=== PATIENT | female | born 1960 | race Asian ===

== ENCOUNTER 2016-08-01 07:53 | Outpatient (CLI) | payer OTHER ==
[~2016-08-01 07:53] MED LIST: ACET-689 PO; AMLO5TAB PO; B COMPLE2 PO; CHLORTHALID25 MG PO; CLARITIN10 MG PO; CYCL10TA35 PO; DICL1GEL2 TOP; FLUTICASONE50 MCG; FOLI1TAB26 PO; GABA300C2 PO; HYDR200T3 PO; KETO2CRE EX; LANTUS100 MG/ML SC; METHYLPR SS125 MG IJ; METO50TA63 PO; MIRALAX3350 N1 PO; RENVELA800 MG PO; SENSIPAR30 MG PO; SIMV10TA PO; WARFARIN4 MG PO; WARFARIN6 MG PO; ZESTRIL40 MG PO; [UNRECOGNIZED DRUG - OTHER] OR
[2016-08-01 08:58] LABS: PLATELET COUNT 172 K/uL (152-353)
[2016-08-01 09:03] LABS: POTASSIUM 4.3 mmol/L (3.6-5.2)
== END 2016-08-01 19:10 | disposition home or self-care (01) ==
LOC: LABW 07:53
PROVIDERS: Family Medicine
DX: Z94.0 Kidney transplant status (principal); Z79.899 Other long term (current) drug therapy; Z51.81 Encounter for therapeutic drug level monitoring; M54.2 Cervicalgia; M54.9 Dorsalgia, unspecified
CPT/HCPCS: 36415; 80053; 80197; 81000; 83735; 85027; 87799

== ENCOUNTER 2016-08-30 07:46 | Outpatient (CLI) | payer OTHER ==
[2016-08-30 08:09] LABS: PLATELET COUNT 167 K/uL (152-353)
[2016-08-30 08:14] LABS: POTASSIUM 4.7 mmol/L (3.6-5.2)
== END 2016-08-30 19:26 | disposition home or self-care (01) ==
LOC: LABW 07:46
PROVIDERS: Internal Medicine Nephrology
DX: Z94.0 Kidney transplant status (principal); Z79.899 Other long term (current) drug therapy; Z51.81 Encounter for therapeutic drug level monitoring
CPT/HCPCS: 36415; 80053; 80197; 81000; 83735; 85027; 87799

== ENCOUNTER 2016-09-03 10:04 | Inpatient (IN) | payer OTHER ==
[~2016-09-03] VITALS: Ht 160 cm; Wt 101.0 kg
[2016-09-03] VITALS (16 sets, daily range): BP systolic 88–185; BP diastolic 49–91; TEMP 99.3–102.9; Ht 160 cm; Wt 101.0 kg
--- NOTE | 2016-09-03 10:32 | NUR ---
Pt. ADMITTED TO ROOM [address] TINAJERO. C/O RUN A TEMP AND ACHING ALL OVER SINCE FRIDAY. TEMP 102.9
--- NOTE | 2016-09-03 12:06 | NUR ---
TYLENOL 650MG GIVEN FOR ELEVATED TEMP. RECEIVED ORDER TO TRANSFER Pt. TO ICU. Pt. HAS CHILLS WITH FEVER.
[2016-09-03 13:45] LABS: PLATELET COUNT 147 K/uL (152-353)
--- NOTE | 2016-09-03 14:04 | NUR ---
PT TO ICU VIA W/C FROM MED/SURG. ASSISTED TO BSC,FEW DROPS MED. YELLOW URINE,PERICARE PER SELF & ASSISTED TO BED. PT DOESN'T 'FEEL GOOD',BEEN SICK SINCE SAT, FEVER & CHILLS. DENIES PAIN AT THIS TIME. IV NS INFUSING @30 CC/HR INTO LFA 20G IV.
--- NOTE | 2016-09-03 14:04 | NUR ---
REPORT GIVEN TO ANASTACIO CHAU RN. Pt. TRANSFERRED TO ICU VIA W/C. TEMP 101.5
[2016-09-03 14:05] LABS: POTASSIUM 4.9 mmol/L (3.6-5.2); SODIUM 131 mmol/L (136-145)
--- NOTE | 2016-09-03 14:20 | NUR ---
LAB IN TO DRAW 2ND BC.
[2016-09-03] MEDS ORDERED: PULMICORT180 MCG IN (16:42)
[2016-09-03] MEDS ORDERED: PRED5TAB3 PO (16:45)
--- NOTE | 2016-09-03 16:45 | NUR ---
PT WITH C/O TINGLING & TENDERNESS TO EVLIA LOWER LEGS. DENIES FALLS OR INJURIES, DENIES DECREASED ACTIVITIES FOR LONG PERIOD.
[2016-09-03] MEDS ORDERED: TACROLIMUS1 MG OR (16:46)
[2016-09-03] MEDS ORDERED: MYCOPHENOLAT250 MG OR (16:49)
[2016-09-03] MEDS ORDERED: DOCU100C10 PO (16:50)
[2016-09-03] MEDS ORDERED: OXYC5TAB53 PO (16:55)
[2016-09-03] MEDS ORDERED: TIZA4TAB5 PO (16:57)
[2016-09-03] MEDS ORDERED: OMEPRAZOLE20 M1 OR (17:02)
[2016-09-03] MEDS ORDERED: TOPROL XL200 M1 PO (17:04)
[2016-09-03] MEDS ORDERED: VIT D3 PO (17:07)
[2016-09-03] MEDS ORDERED: LIPITOR10 MG PO (17:11)
[2016-09-03] MEDS ORDERED: SODIUM BICAR650 MG OR (17:13)
[2016-09-03] MEDS ORDERED: HYDRALAZINE25 MG PO (17:14)
[2016-09-03] MEDS ORDERED: PACERONE200 MG OR (17:15)
--- NOTE | 2016-09-03 18:30 | NUR ---
PT ASSISTED UP TO BSC,SHAKY WHEN UP,VOIDED 200 ML CL JOSE URINE.
[2016-09-03] MEDS ORDERED: INSUINJ47 SC (19:23)
--- NOTE | 2016-09-03 19:30 | NUR ---
RCD PT TEMP ELEVATED TYLENOL GIVEN ALERT ORIENTED
--- NOTE | 2016-09-03 20:00 | NUR ---
FAMILY VS WILL BRING REST OF HOME MEDS TOMARROW. TEMP 100 A
--- NOTE | 2016-09-03 21:00 | NUR ---
PM MEDS GIVEN FAMILY TO BRING MORE TOMARROW ALERT RESTING O2 AT 2L N/C NO C/O
[2016-09-04] VITALS (23 sets, daily range): BP systolic 89–168; BP diastolic 48–88; TEMP 97.8–98.6
--- NOTE | 2016-09-04 | NUR ---
HARD TO ROUSE BUT ALERT WHEN AWAKE TEMP 98.5,RT TX GIVEN MONITOR AFIB.NO C/O COMFORTABLE.
--- NOTE | 2016-09-04 01:00 | NUR ---
HEPARIN GIVEN EDUCATION ON SIDE EFFECTS,VERY SLEEPY WILL NEED REINFORCEMENT.MONITOR AFIB,O2 SAT 100.
--- NOTE | 2016-09-04 02:18 | NUR ---
TEMP 98.6 O ALERT,RESTING DENIES PAIN OR TINGLING IN LEGS.
--- NOTE | 2016-09-04 03:00 | NUR ---
LAB DRAWN/EKG DONE ALERT ORIENTED BUT FALLS BACK TO SLEEP.MONITOR AFLUTTER/AFIB.
[2016-09-04 03:24] LABS: PLATELET COUNT 150 K/uL (152-353)
--- NOTE | 2016-09-04 03:39 | NUR ---
RT GIVEN VINAY WELL BY RT
[2016-09-04 03:48] LABS: POTASSIUM 5.9 mmol/L (3.6-5.2); SODIUM 131 mmol/L (136-145)
--- NOTE | 2016-09-04 04:04 | NUR ---
BLOOD SUGAR 297 DR DEE PIERRE MD CALLED NS BOLUS TO BE GIVEN
--- NOTE | 2016-09-04 04:50 | NUR ---
ALERT DRAINAGE FROM SINUS YELLOW THICK. MONITOR AT FLUTTER
--- NOTE | 2016-09-04 05:13 | NUR ---
BOLUS COMPLETED NS CHANGED TO30CC/HR.LUNGS CLEAR,MUCOUS FROM NASAL DRAINAGE NOW YELLOW WITH GREEN TINGE
--- NOTE | 2016-09-04 05:18 | NUR ---
INSTRUCTED ON SAVING MUCOUS IN A CUP FOR SPECIMEN CUP AT BEDSIDE
--- NOTE | 2016-09-04 06:00 | NUR ---
SPECIMEN TO LAB MUCOUS GREENISH YELLOW.BACK TO SLEEP.
--- NOTE | 2016-09-04 06:28 | NUR ---
UP TO COMMODE VOIDED 100CC ALERT STABLE,"I FEEL SO MUCH BETTER" BACK TO BED NO COMPLAINTS.
--- NOTE | 2016-09-04 07:29 | NUR ---
RAD HERE FOR RENAL US.
--- NOTE | 2016-09-04 07:30 | NUR ---
AM ASSESSMENT DONE. NAD NOTED AT THIS TIME.
--- NOTE | 2016-09-04 09:30 | NUR ---
BIANCA JIMÉNEZ RN FOR DR. TINAJERO HERE TO SEE PT.
--- NOTE | 2016-09-04 10:00 | NUR ---
PT TO CT VIA WC IN STABLE COND.
--- NOTE | 2016-09-04 10:17 | NUR ---
PT BACK FROM CT IN STABLE COND. PT PLACED ON MONITORS. NAD NOTED AT THIS TIME.
--- NOTE | 2016-09-04 11:28 | NUR ---
DR. TINAJERO HERE TO SEE PT.
--- NOTE | 2016-09-04 11:40 | NUR ---
16F KEY INSERTED VIA [employer]. 100ML OF JOSE CONCENTRATED URINE OUTPUT. SPECIMEN COLLECTED AND SENT TO THE LAB.
--- NOTE | 2016-09-04 13:45 | NUR ---
2MD IV STARTED IN L AC PER SRAVAN CARRILLO RN X 5 ATTEMPTS. CARDIAZEM DRIP INFUSING @ 5MG/HR.
--- NOTE | 2016-09-04 14:57 | NUR ---
FAMILY AT BEDSIDE. UROMETER PLACED ON KEY FOR STRICT I&O.
--- NOTE | 2016-09-04 16:23 | NUR ---
PT VISITING WITH FRIENDS.
--- NOTE | 2016-09-04 19:55 | NUR ---
RECEIVED PT AOX3, RECEIVING CARDIZEM AT 5 MG/HR AND IVF ORDERED. PT DENIES PAIN OR SOB. P.M. ASSESSMENT COMPLETE.
--- NOTE | 2016-09-04 23:53 | NUR ---
RECEIVING NEB TX.
[2016-09-05] VITALS (23 sets, daily range): BP systolic 108–166; BP diastolic 48–98; TEMP 97.7–98.3
[2016-09-05 05:50] LABS: PLATELET COUNT 160 K/uL (152-353)
[2016-09-05 06:00] LABS: POTASSIUM 5.5 mmol/L (3.6-5.2)
--- NOTE | 2016-09-05 06:27 | NUR ---
GAVE PT OXYCODONE 5/325 MG PO PRN FOR 10 PRS C/O RODRIGUEZ.
--- NOTE | 2016-09-05 07:30 | NUR ---
AM ASSESSMENT DONE. NAD NOTED AT THIS TIME.
--- NOTE | 2016-09-05 09:00 | NUR ---
PT WATCHING TV. NAD NOTED AT THIS TIME.
--- NOTE | 2016-09-05 10:11 | NUR ---
FAMILY AT BEDSIDE.
--- NOTE | 2016-09-05 11:54 | NUR ---
DR. TINAJERO HERE TO SEE PT.
--- NOTE | 2016-09-05 12:19 | NUR ---
FAMILY AT BEDSIDE. NAD NOTED AT THIS TIME.
--- NOTE | 2016-09-05 13:55 | NUR ---
PT RESTING QUIETLY WITH EYES CLOSED. WILL CONTINUE TO MONITOR.
--- NOTE | 2016-09-05 15:50 | NUR ---
RT HERE FOR BREATHING TX.
--- NOTE | 2016-09-05 17:20 | NUR ---
PT UP TO BSC TO HAVE A BM.
--- NOTE | 2016-09-05 17:25 | NUR ---
PT BACK TO BED. PT PASSED ALOT OF GAS. NO BM.
--- NOTE | 2016-09-05 18:43 | NUR ---
PT VISITING WITH FRIEND. NAD NOTED AT THIS TIME.
--- NOTE | 2016-09-05 19:36 | NUR ---
Received pt resting in bed quietly. No distress noted at this time. Pt alert and oriented. Denies pain. Assessment completed. Coronel to BSD. HOB elevated. Resp even and non labored at this time. VSS per monitor. Cardizem gtt infusing at 5mcg. NS infusing at 30cc. No s/s of infiltration noted. Bed in lowest position. Call light within reach. Will continue to monitor.
--- NOTE | 2016-09-05 20:29 | NUR ---
P.M. meds given at this time. Pt tolerated well. Will continue to monitor.
--- NOTE | 2016-09-05 21:59 | NUR ---
Pt resting in bed with eyes closed. No distress noted. No change in assessment at this time. Will continue to monitor.
--- NOTE | 2016-09-05 23:48 | NUR ---
Pt has some shakeness that comes and goes. She states that this is new. Will make sure that doctor is aware.
[2016-09-06] VITALS (24 sets, daily range): BP systolic 91–159; BP diastolic 58–103; TEMP 97.8–100.4
--- NOTE | 2016-09-06 00:41 | NUR ---
No distress noted. No change in assessment at this time. Pt resting with eyes closed. Will continue to monitor.
--- NOTE | 2016-09-06 02:37 | NUR ---
Pt attempted to have bowel movent. Unsuccessful at this time. Complains of some pain in her arms and being nauseated. Zofran and Tylenol given. Will continue to monitor.
[2016-09-06 06:50] LABS: PLATELET COUNT 178 K/uL (152-353)
[2016-09-06 07:01] LABS: POTASSIUM 5.2 mmol/L (3.6-5.2)
--- NOTE | 2016-09-06 09:40 | NUR ---
ATTEMPT LAB W/O SUCCESS. LAB CALLED, UNABLE TO DRAW AT THIS TIME
--- NOTE | 2016-09-06 10:20 | NUR ---
PT ASSISTED OOB, BM NOTED
--- NOTE | 2016-09-06 10:50 | NUR ---
CIARA CALVILLO RN OBTAINED LABS, X2 ATTEMPTS, PT TOLERATED WELL
--- NOTE | 2016-09-06 12:00 | NUR ---
DR TINAJERO AT BS.
--- NOTE | 2016-09-06 12:00 | NUR ---
INCREASE CARDIZEM GTT 7.5MG/HR TO MAINTAIN HR <100 (HR 98-110)
--- NOTE | 2016-09-06 16:45 | NUR ---
PT ASSISTED W/EASY PAP, TOLERATED WELL
--- NOTE | 2016-09-06 18:00 | NUR ---
PT ASSISTED UP TO BSC BY PCT, PT SOB W/EXERTION
--- NOTE | 2016-09-06 18:53 | NUR ---
NS @30ML/HR, CARDIZEM @ 7.5ML/HR TO LLFA IV. 22G LAC INTACT. HR 89 REMAINS IN AFLUTTER. BP 150/64. KEY TO BSD. PT ALERT AND ORIENTED.. 02 2L NC. SOB IN W/EXERTION
--- NOTE | 2016-09-06 20:14 | NUR ---
UP OUT OF BED WITH ASSISTANCE. PT HAD BOWEL MOVEMENT. PT WAS CLEANED AND REPOSITIONED IN BED. PT WITH INCREASED SOB WITH ACTIVITY. O2 PLACED ON. PTS FAMILY AT BEDSIDE.
--- NOTE | 2016-09-06 22:07 | NUR ---
PT WITH COMPLAINTS OF FEELING NAUSEATED. MEDICATED PT WITH ZOFRAN 4 MG IVSP.
--- NOTE | 2016-09-06 22:24 | NUR ---
PT WAS GIVEN HOME MEDICATIONS. UNABLE TO SCAN NO CODE OR CHARGE.
--- NOTE | 2016-09-06 22:25 | NUR ---
PT EASED OF NAUSEA AT PRESENT AND RESTING WITH EYES CLOSED.
[2016-09-07] VITALS (12 sets, daily range): BP systolic 125–152; BP diastolic 66–84; TEMP 98.1–100.1
--- NOTE | 2016-09-07 01:34 | NUR ---
ASSISTED PT UP OUT OF BED WITH ASSISTANCE OF PCT. PT VERY WEAK AND SHAKY WHEN STANDING AND TRANSFERRING TO BSC. NOTE INCREASED KELSEY WITH ACTIVITY AND WEARING O2 NC CONTIUOUSLY. NO RESULTS. ASSISTED PT BACK TO BED WITH HOB ELEVATED. INSTRUCTED PT TO TAKE DEEP BREATHS AND PT WAS REPOSTITIONED IN BED AT THIS TIME.
--- NOTE | 2016-09-07 03:54 | NUR ---
PT TOLERATED RESP TREATMENT WITHOUT ANY DIFFICULTY. 02 SATS 96 PERCENT.
[2016-09-07 05:24] LABS: PLATELET COUNT 194 K/uL (152-353)
--- NOTE | 2016-09-07 07:30 | NUR ---
AM ASSESSMENT DONE. NAD NOTED AT THIS TIME.
--- NOTE | 2016-09-07 08:30 | NUR ---
PT NAUSEATED. PT ONLY ATE 25% OF BREAKFAST. WILL MEDICATE. WILL CONTINUE TO MONITOR.
--- NOTE | 2016-09-07 09:30 | NUR ---
PT RESTING QUIETLY WITH EYES CLOSED. WILL CONTINUE TO MONITOR.
--- NOTE | 2016-09-07 10:16 | NUR ---
FAMILY AT BEDSIDE. PT SITTING ON SIDE OF BED.
--- NOTE | 2016-09-07 10:35 | NUR ---
PT RECEIVED A BATH. PT VINAY WELL.
--- NOTE | 2016-09-07 11:46 | NUR ---
PT RESTING QUIETLY WITH EYES CLOSED. WILL CONTINUE TO MONITOR.
--- NOTE | 2016-09-07 12:15 | NUR ---
DR. TINAJERO HERE TO SEE PT.
--- NOTE | 2016-09-07 13:31 | NUR ---
JORGE Thomas/C'Martha. LAMONTE CHAPIN.
--- NOTE | 2016-09-07 13:40 | NUR ---
REPORT GIVEN TO MICHAEL CLEMONS AT [facility]. PT BEING TRANSFERRED TO [facility] TO DR. CORMIER.
--- NOTE | 2016-09-07 14:12 | NUR ---
PT OUT VIA EMS IN STABLE COND.
== END 2016-09-07 14:12 | disposition short-term general hospital (02) | DRG 871 ==
LOC: MED/SURG 10:04 → ICU 10:04
PROVIDERS: Emergency Medicine; ADMIT Family Medicine
DX: A41.89 Other specified sepsis (principal); J15.5 Pneumonia due to Escherichia coli; I48.92 Unspecified atrial flutter; Z94.0 Kidney transplant status; R07.89 Other chest pain; R50.9 Fever, unspecified; R31.9 Hematuria, unspecified; E11.9 Type 2 diabetes mellitus without complications; R09.02 Hypoxemia; I48.91 Unspecified atrial fibrillation
CPT/HCPCS: 36415; 36600; 51702; 80053; 81000; 82436; 82550; 82553; 82570; 82805; 82962; 83605; 83735; 83880; 84300; 84443; 84484; 84540; 85027; 85379; 85610; 87040; 87070; 87077; 87088; 87186; 87205; 93005; 94640; 94664; 94760; 96372; J0456; J1644; J1940; J2405; J3475; J3490

== ENCOUNTER 2016-09-07 14:13 | Outpatient (CLI) | payer OTHER ==
[~2016-09-07 14:13] MED LIST changes: +DOCU100C10 PO; +HYDRALAZINE25 MG PO; +INSUINJ47 SC; +LIPITOR10 MG PO; +MYCOPHENOLAT250 MG OR; +OMEPRAZOLE20 M1 OR; +OXYC5TAB53 PO; +PACERONE200 MG OR; +PRED5TAB3 PO; +PULMICORT180 MCG IN; +SODIUM BICAR650 MG OR; +TACROLIMUS1 MG OR; +TIZA4TAB5 PO; +TOPROL XL200 M1 PO; +VIT D3 PO
== END 2016-09-07 16:08 | disposition short-term general hospital (02) ==
LOC: AMB 14:13
DX: A41.89 Other specified sepsis (principal); J15.5 Pneumonia due to Escherichia coli; I48.92 Unspecified atrial flutter; R07.89 Other chest pain; Z94.0 Kidney transplant status; R50.9 Fever, unspecified; R31.9 Hematuria, unspecified; E11.9 Type 2 diabetes mellitus without complications; R09.02 Hypoxemia; I48.91 Unspecified atrial fibrillation
CPT/HCPCS: A0425; A0427

== ENCOUNTER 2016-10-15 10:19 | Inpatient (IN) | payer OTHER ==
[~2016-10-15] VITALS: Ht 160 cm; Wt 90.9 kg
[2016-10-15 12:09] VITALS: BP 101/52; TEMP 98.6; Ht 160 cm; Wt 90.9 kg
[2016-10-15 13:19] LABS: PLATELET COUNT 373 K/uL (152-353)
[2016-10-15 15:24] LABS: PARTIAL THROMBOPLASTIN TIME 22.7 SECONDS (24.5-33.6)
[2016-10-15 16:00] VITALS: BP 101/52; TEMP 98.6
[2016-10-15 20:00] VITALS: BP 117/85; TEMP 97.6
[2016-10-16] VITALS: BP 140/75; TEMP 98
[2016-10-16 04:00] VITALS: BP 154/96; TEMP 98.6
[2016-10-16 08:00] VITALS: BP 98/42; TEMP 97.6
[2016-10-16 10:22] LABS: POTASSIUM 4.3 mmol/L (3.6-5.2)
[2016-10-16 10:46] LABS: PLATELET COUNT 349 K/uL (152-353)
[2016-10-16 12:00] VITALS: BP 119/57; TEMP 98
[2016-10-16 16:00] VITALS: BP 134/74; TEMP 98.8
[2016-10-16 20:00] VITALS: BP 149/73; TEMP 99.2
[2016-10-17] VITALS: BP 154/70; TEMP 98.6
[2016-10-17 04:00] VITALS: BP 159/81; TEMP 98
[2016-10-17 06:26] LABS: POTASSIUM 4.2 mmol/L (3.6-5.2); SODIUM 135 mmol/L (136-145)
[2016-10-17 06:52] LABS: PLATELET COUNT 337 K/uL (152-353)
[2016-10-17 08:25] VITALS: BP 142/66; TEMP 98.6
[2016-10-17 12:00] VITALS: BP 153/83; TEMP 98
[2016-10-17 16:00] VITALS: BP 156/91; TEMP 98.1
[2016-10-17 20:00] VITALS: BP 162/83; TEMP 98.2
[2016-10-18] VITALS (7 sets, daily range): BP systolic 142–170; BP diastolic 68–92; TEMP 98–98.6
[2016-10-18 05:00] LABS: PLATELET COUNT 333 K/uL (152-353)
[2016-10-18 05:19] LABS: POTASSIUM 4.1 mmol/L (3.6-5.2)
[2016-10-19 04:00] VITALS: BP 150/88; TEMP 98.7
[2016-10-19 05:55] LABS: PLATELET COUNT 361 K/uL (152-353)
[2016-10-19 06:06] LABS: POTASSIUM 4.1 mmol/L (3.6-5.2)
[2016-10-19 08:00] VITALS: BP 151/77; TEMP 98.8
[2016-10-19 12:00] VITALS: BP 149/80; TEMP 98.2
[2016-10-19 16:00] VITALS: BP 153/99; TEMP 98
[2016-10-19 20:00] VITALS: BP 155/97; TEMP 98.1
[2016-10-20] VITALS: BP 142/88; TEMP 98.4
[2016-10-20 04:00] VITALS: BP 178/88; TEMP 98.5
[2016-10-20 05:42] LABS: PLATELET COUNT 365 K/uL (152-353)
[2016-10-20 05:44] LABS: POTASSIUM 4.4 mmol/L (3.6-5.2)
[2016-10-20 08:00] VITALS: BP 171/98; TEMP 97.7
[2016-10-20] MEDS ORDERED: FURO40TA93 PO (08:34)
[2016-10-20 12:00] VITALS: BP 139/83; TEMP 98.6
[2016-10-20 15:52] VITALS: BP 176/92; TEMP 97.9
[2016-10-20 19:38] VITALS: BP 153/99; TEMP 98.9
[2016-10-21] VITALS: BP 147/76; TEMP 98.6
[2016-10-21 04:00] VITALS: BP 141/77; TEMP 98.8
[2016-10-21 06:49] LABS: PLATELET COUNT 346 K/uL (152-353)
[2016-10-21 07:06] LABS: POTASSIUM 4.1 mmol/L (3.6-5.2)
[2016-10-21 08:00] VITALS: BP 140/77; TEMP 98.7
[2016-10-21 12:00] VITALS: BP 161/99; TEMP 98.7
[2016-10-21 16:00] VITALS: BP 158/91; TEMP 98.9
[2016-10-21 20:00] VITALS: BP 142/83; TEMP 99.4
[2016-10-22 00:19] VITALS: BP 159/97; TEMP 99.4
[2016-10-22 04:00] VITALS: BP 151/81; TEMP 98.9
[2016-10-22 05:45] LABS: PLATELET COUNT 346 K/uL (152-353)
[2016-10-22 07:58] VITALS: BP 157/74; TEMP 99.1
[2016-10-22 12:00] VITALS: BP 119/76; TEMP 98.5
[2016-10-22 16:00] VITALS: BP 152/87; TEMP 98.4
[2016-10-22 20:00] VITALS: BP 152/84; TEMP 98.7
[2016-10-23] VITALS: BP 149/77; TEMP 99
[2016-10-23 04:00] VITALS: BP 130/77; TEMP 98.3
[2016-10-23 06:10] LABS: PLATELET COUNT 323 K/uL (152-353)
[2016-10-23 08:00] VITALS: BP 130/771; TEMP 98.7
[2016-10-23 12:13] VITALS: BP 146/76; TEMP 98.5
== END 2016-10-23 16:00 | disposition home health service (06) | DRG 571 ==
LOC: MED/SURG 10:19
PROVIDERS: Emergency Medicine; Student in an Organized Health Care Education/Training Program; ADMIT Family Medicine
PROC: 0JBP0ZZ Excision of Left Lower Leg Subcutaneous Tissue and Fascia, Open Approach (ICD-10-PCS; principal; 2016-10-15)
PROC: 30233N1 Transfusion of Nonautologous Red Blood Cells into Peripheral Vein, Percutaneous Approach (ICD-10-PCS; 2016-10-17)
DX: L89.892 Pressure ulcer of other site, stage 2 (principal); N39.0 Urinary tract infection, site not specified; E87.1 Hypo-osmolality and hyponatremia; B96.5 Pseudomonas (aeruginosa) (mallei) (pseudomallei) as the cause of diseases classified elsewhere; I12.9 Hypertensive chronic kidney disease with stage 1 through stage 4 chronic kidney disease, or unspecified chronic kidney disease; N18.3 Chronic kidney disease, stage 3 (moderate); D64.89 Other specified anemias; E83.42 Hypomagnesemia; B96.89 Other specified bacterial agents as the cause of diseases classified elsewhere
CPT/HCPCS: 36415; 36430; 36591; 80053; 80200; 81000; 82607; 82728; 82747; 82948; 83540; 83550; 83735; 84466; 85027; 85044; 85610; 85730; 86850; 86900; 86901; 86922; 87040; 87070; 87077; 87185; 87186; 87205; 96367; 96372; 96374; C1768; J1170; J1650; J1956; J2270; J2704; J3010; J3260; J3475; P9016

== ENCOUNTER 2016-10-31 10:45 | Outpatient (CLI) | payer OTHER ==
[~2016-10-31 10:45] MED LIST changes: +FURO40TA93 PO
[2016-10-31 11:10] LABS: PLATELET COUNT 315 K/uL (152-353)
[2016-10-31 12:31] LABS: POTASSIUM 4.8 mmol/L (3.6-5.2)
== END 2016-10-31 19:43 | disposition home or self-care (01) ==
LOC: LABW 10:45
PROVIDERS: Internal Medicine Nephrology
DX: Z94.0 Kidney transplant status (principal); Z79.899 Other long term (current) drug therapy; Z51.81 Encounter for therapeutic drug level monitoring
CPT/HCPCS: 36415; 80053; 80197; 81000; 83735; 85027; 87799

== ENCOUNTER 2016-11-05 09:08 | Outpatient (CLI) | payer OTHER | END 2016-11-05 19:06 | disposition home or self-care (01) | LOC: US 09:08 | DX: M79.605 Pain in left leg (principal) ==

== ENCOUNTER 2016-11-15 07:36 | Day surgery (SDC) | payer OTHER ==
[~2016-11-15] VITALS: Ht 30.5 cm; Wt 0.5 kg
== END 2016-11-15 11:51 | disposition home or self-care (01) ==
LOC: OR 07:36
PROC: 0JBP0ZZ Excision of Left Lower Leg Subcutaneous Tissue and Fascia, Open Approach (ICD-10-PCS; principal; 2016-11-15)
PROC: 0JBM0ZZ Excision of Left Upper Leg Subcutaneous Tissue and Fascia, Open Approach (ICD-10-PCS; 2016-11-15)
PROC: 0JBN0ZZ Excision of Right Lower Leg Subcutaneous Tissue and Fascia, Open Approach (ICD-10-PCS; 2016-11-15)
PROC: 0JBL0ZZ Excision of Right Upper Leg Subcutaneous Tissue and Fascia, Open Approach (ICD-10-PCS; 2016-11-15)
DX: L89.893 Pressure ulcer of other site, stage 3 (principal)
CPT/HCPCS: J1170; J2001; J2250; J2704; J3010

== ENCOUNTER 2016-11-22 10:07 | Outpatient (CLI) | payer OTHER ==
[2016-11-22 10:39] LABS: PLATELET COUNT 320 K/uL (152-353)
[2016-11-22 10:47] LABS: POTASSIUM 4.8 mmol/L (3.6-5.2)
== END 2016-11-22 19:30 | disposition home or self-care (01) ==
LOC: LABW 10:07
PROVIDERS: Internal Medicine Nephrology
DX: Z94.0 Kidney transplant status (principal); Z79.899 Other long term (current) drug therapy; Z51.81 Encounter for therapeutic drug level monitoring
CPT/HCPCS: 36415; 80053; 80197; 81000; 83735; 85027; 87799

== ENCOUNTER 2016-11-22 12:05 | Emergency (ER) | payer OTHER ==
[~2016-11-22] VITALS: Ht 160 cm; Wt 97.1 kg
[2016-11-22 15:10] VITALS: BP 136/90; TEMP 98.2
== END 2016-11-22 20:25 | disposition still patient (30) ==
LOC: ED 12:05
DX: Z94.0 Kidney transplant status (principal); R94.4 Abnormal results of kidney function studies; Z79.899 Other long term (current) drug therapy; Z51.81 Encounter for therapeutic drug level monitoring
CPT/HCPCS: 36415; 80053; 80197; 81000; 82436; 82570; 83735; 84100; 84300; 85027; 85651; 87799; 99284

== ENCOUNTER 2016-11-22 20:31 | Outpatient (CLI) | payer OTHER | END 2016-11-22 22:20 | disposition short-term general hospital (02) | LOC: AMB 20:31 | DX: Z94.0 Kidney transplant status (principal); R94.4 Abnormal results of kidney function studies; Z79.899 Other long term (current) drug therapy; Z51.81 Encounter for therapeutic drug level monitoring | CPT/HCPCS: A0425; A0429 ==

== ENCOUNTER 2016-12-03 09:13 | Outpatient (CLI) | payer OTHER ==
[2016-12-03 09:27] LABS: PLATELET COUNT 314 K/uL (152-353)
[2016-12-03 09:52] LABS: POTASSIUM 5.2 mmol/L (3.6-5.2)
== END 2016-12-03 10:30 | disposition home or self-care (01) ==
LOC: LABW 09:13
PROVIDERS: Internal Medicine Nephrology
DX: Z94.0 Kidney transplant status (principal); Z79.899 Other long term (current) drug therapy; Z51.81 Encounter for therapeutic drug level monitoring
CPT/HCPCS: 36415; 80053; 80197; 81000; 83735; 85027; 87077; 87086; 87088; 87186

== ENCOUNTER 2016-12-30 08:25 | Outpatient (CLI) | payer OTHER ==
[2016-12-30 09:10] LABS: PLATELET COUNT 260 K/uL (152-353)
[2016-12-30 11:16] LABS: POTASSIUM 6.3 mmol/L (3.6-5.2)
== END 2016-12-30 19:10 | disposition home or self-care (01) ==
LOC: LABW 08:25
PROVIDERS: Internal Medicine Nephrology
DX: Z94.0 Kidney transplant status (principal); Z79.899 Other long term (current) drug therapy; Z51.81 Encounter for therapeutic drug level monitoring
CPT/HCPCS: 36415; 80053; 80197; 81000; 83735; 85027; 87799

== ENCOUNTER 2017-01-01 11:12 | Outpatient (CLI) | payer OTHER ==
[2017-01-01 11:38] LABS: POTASSIUM 4.9 mmol/L (3.6-5.2)
== END 2017-01-01 12:15 | disposition home or self-care (01) ==
LOC: LABW 11:12
PROVIDERS: Internal Medicine Nephrology
DX: Z94.0 Kidney transplant status (principal); Z79.899 Other long term (current) drug therapy; Z51.81 Encounter for therapeutic drug level monitoring
CPT/HCPCS: 36415; 80048

== ENCOUNTER 2017-01-28 07:49 | Outpatient (CLI) | payer OTHER ==
[2017-01-28 09:12] LABS: POTASSIUM 4.6 mmol/L (3.6-5.2)
[2017-01-28 11:42] LABS: PLATELET COUNT 213 K/uL (152-353)
== END 2017-01-28 19:34 | disposition home or self-care (01) ==
LOC: LABW 07:49
PROVIDERS: Internal Medicine Nephrology
DX: Z94.0 Kidney transplant status (principal); Z79.899 Other long term (current) drug therapy; Z51.81 Encounter for therapeutic drug level monitoring; E11.9 Type 2 diabetes mellitus without complications; G47.8 Other sleep disorders; M16.0 Bilateral primary osteoarthritis of hip; M17.0 Bilateral primary osteoarthritis of knee; M17.11 Unilateral primary osteoarthritis, right knee; I50.9 Heart failure, unspecified; I10 Essential (primary) hypertension; E55.9 Vitamin D deficiency, unspecified
CPT/HCPCS: 36415; 80053; 80061; 80197; 81000; 82306; 83036; 83735; 84100; 84439; 84443; 84550; 85027; 85651; 86140; 87077; 87086; 87088; 87186

== ENCOUNTER 2017-02-06 08:15 | Outpatient (CLI) | payer OTHER ==
[2017-02-06 09:36] LABS: POTASSIUM 4.5 mmol/L (3.6-5.2)
== END 2017-02-06 09:15 | disposition home or self-care (01) ==
LOC: LABW 08:15
PROVIDERS: Internal Medicine Nephrology
DX: Z94.0 Kidney transplant status (principal); Z79.899 Other long term (current) drug therapy; Z51.81 Encounter for therapeutic drug level monitoring
CPT/HCPCS: 36415; 80048; 87077; 87086; 87088; 87186

== ENCOUNTER 2017-03-06 10:45 | Outpatient (CLI) | payer OTHER ==
[2017-03-06 11:16] LABS: PLATELET COUNT 146 K/uL (152-353)
== END 2017-03-06 11:45 | disposition home or self-care (01) ==
LOC: LABW 10:45
PROVIDERS: Internal Medicine Nephrology
DX: Z94.0 Kidney transplant status (principal); Z79.899 Other long term (current) drug therapy; Z51.81 Encounter for therapeutic drug level monitoring
CPT/HCPCS: 36415; 80053; 80197; 81000; 83735; 84100; 85027; 87077; 87086; 87088; 87186

== ENCOUNTER 2017-03-11 08:26 | Outpatient (CLI) | payer OTHER | END 2017-03-11 10:00 | disposition home or self-care (01) | LOC: MAMMO 08:26 | DX: Z12.31 Encounter for screening mammogram for malignant neoplasm of breast (principal) | CPT/HCPCS: G0202-TC ==

== ENCOUNTER 2017-03-31 09:19 | Outpatient (CLI) | payer OTHER ==
[2017-03-31 10:05] LABS: PLATELET COUNT 198 K/uL (152-353)
[2017-03-31 10:18] LABS: POTASSIUM 4.1 mmol/L (3.6-5.2)
== END 2017-03-31 10:20 | disposition home or self-care (01) ==
LOC: LABW 09:19
PROVIDERS: Internal Medicine Nephrology
DX: Z94.0 Kidney transplant status (principal); Z79.899 Other long term (current) drug therapy; Z51.81 Encounter for therapeutic drug level monitoring; E78.4 Other hyperlipidemia; I48.91 Unspecified atrial fibrillation
CPT/HCPCS: 36415; 80053; 80197; 81000; 83735; 84100; 84439; 84443; 85027; 87077; 87086; 87088; 87185; 87186

== ENCOUNTER 2017-05-08 08:22 | Outpatient (CLI) | payer OTHER ==
[2017-05-08 08:54] LABS: PLATELET COUNT 194 K/uL (152-353)
[2017-05-08 09:23] LABS: POTASSIUM 4.2 mmol/L (3.6-5.2)
== END 2017-05-08 09:25 | disposition home or self-care (01) ==
LOC: LABW 08:22
PROVIDERS: Internal Medicine Nephrology
DX: Z94.0 Kidney transplant status (principal); Z79.899 Other long term (current) drug therapy; Z51.81 Encounter for therapeutic drug level monitoring; E11.69 Type 2 diabetes mellitus with other specified complication; E55.9 Vitamin D deficiency, unspecified; I10 Essential (primary) hypertension
CPT/HCPCS: 36415; 80053; 80061; 80197; 81000; 82306; 83036; 83735; 84100; 84439; 84443; 85027; 87088

== ENCOUNTER → 2017-05-13 15:11 | Outpatient (CLI) | payer OTHER | END | disposition E | LOC: AMB 15:11 ==